=== PATIENT | female | born 1990 | race Caucasian/White ===

== ENCOUNTER 2017-12-13 08:14 | Emergency (ER) | payer MEDICAID ==
[~2017-12-13] VITALS: Ht 162.6 cm; Wt 56.0 kg
[2017-12-13] MEDS ORDERED: KETOROLAC 60MG/2ML VIAL IM ONE (10:45)
[2017-12-13] MEDS ORDERED: ONDANSETRON 4MG ODT PO ONE (10:45)
[2017-12-13 11:39] VITALS: BP 111/76
== END 2017-12-13 11:47 | disposition home or self-care (01) ==
LOC: ER 08:14
DX: R51 Headache (principal); M54.2 Cervicalgia; M54.5 Low back pain; R11.0 Nausea; M79.1 Myalgia; V89.2XXA Person injured in unspecified motor-vehicle accident, traffic, initial encounter; Y93.89 Activity, other specified; Y92.89 Other specified places as the place of occurrence of the external cause; Y99.8 Other external cause status
CPT/HCPCS: 81025; 96372; 99283; J1885; Q0162

== ENCOUNTER 2019-08-14 15:25 | Emergency (ER) | payer OTHER, MEDICAID ==
[~2019-08-14] VITALS: Ht 162.6 cm; Wt 72.0 kg
[2019-08-14 16:17] VITALS: BP 147/93
== END 2019-08-14 17:58 | disposition home or self-care (01) ==
LOC: ER 15:25
DX: M25.531 Pain in right wrist (principal); R11.2 Nausea with vomiting, unspecified; M79.18 Myalgia, other site; Z90.49 Acquired absence of other specified parts of digestive tract
CPT/HCPCS: 99281; 99283

== ENCOUNTER 2024-11-26 16:10 | Emergency (ER) | payer MEDICAID, OTHER ==
[~2024-11-26] VITALS: Ht 162.6 cm; Wt 67.0 kg
[2024-11-26 16:18] VITALS: BP 121/82; PULSE 94; RESP 16; TEMP 37; O2SAT 100; O2SAT 98
== END 2024-11-26 20:00 | disposition left against medical advice (07) ==
LOC: ER 16:10
DX: R11.2 Nausea with vomiting, unspecified (principal); Z90.49 Acquired absence of other specified parts of digestive tract; Z53.21 Procedure and treatment not carried out due to patient leaving prior to being seen by health care provider